=== PATIENT | male | born 1980 | race Caucasian/White ===

== ENCOUNTER → 2024-03-02 06:24 | Day surgery (SDC) | payer BC, SELFPAY | LOC: GI 06:24 | PROVIDERS: ATTENDING PHYSICIAN Internal Medicine | DX: Z12.11 Encounter for screening for malignant neoplasm of colon (principal); K57.30 Diverticulosis of large intestine without perforation or abscess without bleeding; K51.40 Inflammatory polyps of colon without complications | CPT/HCPCS: 45385; 88305 ==